=== PATIENT | female | born 1975 | race Caucasian/White ===

== ENCOUNTER 2017-01-10 21:11 | Emergency (ER) | payer OTHER, SELFPAY ==
[~2017-01-10 21:11] MED LIST: ASPIRIN325 MG PO; CLARITIN10 M2 PO; FLEXERIL10 MG PO; LOVENOX40 MG/0.4 SQ; NORCO 7.5/3251 TA1 PO
[2017-01-10] MEDS ORDERED: HYDROCODON-ACE1 EA17 PO (23:17)
== END 2017-01-10 23:59 ==
LOC: EDMED 21:11
PROC: 2W3DX1Z Immobilization of Left Lower Arm using Splint (ICD-10-PCS; principal; 2017-01-10)
DX: S52.502A Unspecified fracture of the lower end of left radius, initial encounter for closed fracture (principal); S30.0XXA Contusion of lower back and pelvis, initial encounter; W18.30XA Fall on same level, unspecified, initial encounter; Y93.51 Activity, roller skating (inline) and skateboarding; Y92.331 Roller skating rink as the place of occurrence of the external cause; Y99.8 Other external cause status
CPT/HCPCS: J1170